=== PATIENT | female | born 1990 | race American Indian/Alaskan Native ===

== ENCOUNTER 2017-10-12 10:48 | Emergency (ER) | payer MEDICAID ==
[2017-10-12 11:11] VITALS: BP 132/83
[2017-10-12 12:21] LABS: Basophils # (Auto) 0.1 K/mm3 (0.0-0.1); Basophils % (Auto) 0.6 % (0.0-1.8); Eosinophils # (Auto) 0.3 K/mm3 (0.0-0.4); Hematocrit 42.1 % (30.3-42.9); Hemoglobin 13.5 gm/dl (10.1-14.3); Lymphocytes # (Auto) 2.5 K/mm3 (1.2-5.4); Mean Corpuscular HGB Conc 32 % (30-34); Mean Corpuscular Hemoglobin 29 pg (28-32); Mean Corpuscular Volume 89 fl (79-97); Monocytes # (Auto) 0.8 K/mm3 (0.0-0.8); Monocytes % (Auto) 8.5 % (0.0-7.3); Platelet Count 256 K/mm3 (140-440); Red Blood Count 4.75 M/mm3 (3.65-5.03); Red Cell Distribution Width 15.1 % (13.2-15.2)
--- NOTE | 2017-10-12 12:50 | Emergency Department Report ---
ED HPI - General Chief complaint: Vaginal Bleeding Stated complaint: 11 WKS PREG VAGINAL BLEEDING Time Seen by Provider: 10/12/17 12:43 Source: patient Mode of arrival: Ambulatory Limitations: No Limitations - History of Present Illness Initial comments: 27-year-old female presents with complaint of 2 days of vaginal bleeding and crampy lower abdominal pain. Denies discharge hematuria or dysuria denies any fevers or chills. Patient is awake alert and oriented 3 not in acute distress accompanied by significant other at bedside. Last menstrual period July 2017. Complaint: vaginal bleeding - Related Data Previous Rx's Medication Instructions Recorded Last Taken Type Prednisone [Prednisone 10 mg 10 mg PO .TAPER #1 tab.ds.pk 07/03/14 Unknown Rx (6-Day Pack, 21 Tabs)] traMADol [Ultram 50 MG tab] 50 mg PO Q6HR PRN #14 tablet 07/03/14 Unknown Rx Ondansetron [Zofran Odt] 4 mg PO Q8HR PRN #8 tab.rapdis 08/31/14 Unknown Rx Vit-Fe Fumar-FA [ 1 each PO QDAY #30 tablet 08/31/14 Unknown Rx Vitamin] Acetaminophen [Acetaminophen TAB] 500 mg PO Q6HR PRN #20 tablet 10/12/17 Unknown Rx Acetaminophen/Codeine [Tylenol 1 tab PO Q6H PRN #8 tab 10/12/17 Unknown Rx /Codeine # 3 tab] Nitrofurantoin Monohyd/M-Cryst 100 mg PO BID #14 capsule 10/12/17 Unknown Rx [Macrobid 100 mg Capsule] Allergies Allergy/AdvReac Type Severity Reaction Status Date / Time Penicillins Allergy Unknown Verified 07/03/14 18:14 aloe vera AdvReac Hives Verified 08/31/14 11:34 ED Review of Systems ROS: Stated complaint: 11 WKS PREG VAGINAL BLEEDING Other details as noted in HPI Constitutional: denies: chills, fever Eyes: denies: eye pain, eye discharge, vision change ENT: denies: ear pain, throat pain Respiratory: denies: cough, shortness of breath, wheezing Cardiovascular: denies: chest pain, palpitations Endocrine: no symptoms reported Gastrointestinal: denies: abdominal pain, nausea, diarrhea Genitourinary: denies: urgency, dysuria, discharge Musculoskeletal: denies: back pain, joint swelling, arthralgia Skin: denies: rash, lesions Neurological: denies: headache, weakness, paresthesias Psychiatric: denies: anxiety, depression Hematological/Lymphatic: denies: easy bleeding, easy bruising ED Past Medical Hx - Surgical History Additional Surgical History: C section - Social History Smoking Status: Never Smoker Substance Use Type: None - Medications Home Medications: Home Medications Medication Instructions Recorded Confirmed Last Taken Type Prednisone [Prednisone 10 mg 10 mg PO .TAPER #1 tab.ds.pk 07/03/14 Unknown Rx (6-Day Pack, 21 Tabs)] traMADol [Ultram 50 MG tab] 50 mg PO Q6HR PRN #14 tablet 07/03/14 Unknown Rx Ondansetron [Zofran Odt] 4 mg PO Q8HR PRN #8 tab.rapdis 08/31/14 Unknown Rx Vit-Fe Fumar-FA [ 1 each PO QDAY #30 tablet 08/31/14 Unknown Rx Vitamin] Acetaminophen [Acetaminophen TAB] 500 mg PO Q6HR PRN #20 tablet 10/12/17 Unknown Rx Acetaminophen/Codeine [Tylenol 1 tab PO Q6H PRN #8 tab 10/12/17 Unknown Rx /Codeine # 3 tab] Nitrofurantoin Monohyd/M-Cryst 100 mg PO BID #14 capsule 10/12/17 Unknown Rx [Macrobid 100 mg Capsule] ED Physical Exam - General Limitations: No Limitations General appearance: alert, in no apparent distress - Head Head exam: Present: atraumatic, normocephalic - Eye Eye exam: Present: normal appearance - ENT ENT exam: Present: mucous membranes moist - Neck Neck exam: Present: normal inspection - Respiratory Respiratory exam: Present: normal lung sounds bilaterally. Absent: respiratory distress - Cardiovascular Cardiovascular Exam: Present: regular rate, normal rhythm. Absent: systolic murmur, diastolic murmur, rubs, gallop - GI/Abdominal GI/Abdominal exam: Present: soft, normal bowel sounds - Speculum exam: Present: vaginal bleeding - Extremities Exam Extremities exam: Present: normal inspection - Back Exam Back exam: Present: normal inspection - Neurological Exam Neurological exam: Present: alert, oriented X3, CN II-XII intact, normal gait - Psychiatric Psychiatric exam: Present: normal affect, normal mood - Skin Skin exam: Present: warm, dry, intact, normal color. Absent: rash ED Course Vital Signs 10/12/17 11:03 Temperature 98.4 F Pulse Rate 103 H Blood Pressure 132/83 O2 Sat by Pulse 99 Oximetry ED Medical Decision Making - Lab Data Result diagrams: 10/12/17 12:02 - Medical Decision Making A/P: miscarriage 1- ultrasound consistent with active miscarriage 2- discussed with Dr. Mora before discharge, patient states she has a [employer] TECHNICIAN called Dr. Linh Hawley at [facility] 3- RH+ 4- I advised patient to follow up with her [employer] TECHNICIAN in 2-4 days for repeat hCG level and further workup as needed. Urinalysis is unremarkable otherwise. Critical care attestation.: If time is entered above; I have spent that time in minutes in the direct care of this critically ill patient, excluding procedure time. ED Disposition Clinical Impression: Miscarriage Disposition: DC-01 TO HOME OR SELFCARE Is pt being admited?: No Does the pt Need Aspirin: No Condition: Stable Instructions: Spontaneous Miscarriage (ED) Additional Instructions: I advised patient to follow-up with her [employer] AND G[employer] TECHNICIAN in 4-5 days for repeat blood testing hormone level and possible ultrasound Prescriptions: Acetaminophen [Acetaminophen TAB] 500 mg PO Q6HR PRN #20 tablet PRN Reason: Pain , Severe (7-10) Acetaminophen/Codeine [Tylenol /Codeine # 3 tab] 1 tab PO Q6H PRN #8 tab PRN Reason: Pain , Severe (7-10) Nitrofurantoin Monohyd/M-Cryst [Macrobid 100 mg Capsule] 100 mg PO BID #14 capsule Referrals: ROMAN RHODES MD [Staff Physician] - 3-5 Days Forms: Accompanied Note, Work/School Release Form(ED) Time of Disposition: 14:49
--- NOTE | 2017-10-12 13:32 | Emergency Department Report ---
Blank Doc - Documentation Documentation: 27-year-old female approximately 11 weeks by last menstrual period that presents with bilateral lower abdominal cramping and vaginal bleeding for the past 2 days. Patient says that her bleeding is worsening. She has seen several clots passed. She is concerned that she could be having a miscarriage. Patient has not had an ultrasound to confirm her dates. She has never had a miscarriage before. Denies urinary symptoms. Previous 4 pregnancies were complicated.
--- NOTE | 2017-10-12 13:51 | Ultrasound Report ---
TRANSABDOMINAL AND TRANSVAGINAL OBSTETRICAL ULTRASOUND: 10/12/17 10:48:00 CLINICAL: Positive test and vaginal bleeding. FINDINGS: Transabdominal and transvaginal pelvic ultrasound demonstrated a large amount of echogenic material which is presumably blood in the lower uterine cavity extending into the cervix and an empty gestational sac in the lower uterine segment. No yolk sac or embryo identified. The cervix is closed. The right ovary is normal and was only identified transabdominally. It measures 2.8 x 1.4 x 2.7cm. The left ovary measures 3.1 x 2.1 x 2.2 cm and contains a complex cyst measuring 1.3cm. No adnexal mass. No free fluid. Normal urinary bladder. IMPRESSION: An abnormal intrauterine gestational sac and its uterine blood consistent with an intrauterine AB in progress. No suspicion of ectopic .
[2017-10-12 15:19] LABS: Bilirubin,Urine NEG (Negative); Blood,Urine LG (Negative); Urobilinogen,Urine < 2.0 mg/dL (<2.0)
[2017-10-12 15:20] LABS: Color,Urine Red (Yellow); RBC,Urine > 182.0 /HPF (0.0-6.0); WBC,Urine < 1.0 /HPF (0.0-6.0)
== END 2017-10-12 15:01 | disposition home or self-care (01) ==
LOC: ED 10:48
DX: O03.9 Complete or unspecified spontaneous abortion without complication (principal); Z88.0 Allergy status to penicillin; Z3A.11 11 weeks gestation of pregnancy
CPT/HCPCS: 36415; 76801; 76817; 81001; 84702; 85025; 86850; 86900; 86901

== ENCOUNTER 2018-10-01 08:32 | Emergency (ER) | payer MEDICAID ==
[2018-10-01 08:37] VITALS: BP 119/70
--- NOTE | 2018-10-01 09:32 | Emergency Department Report ---
ED Fever HPI - General Chief Complaint: Fever Stated Complaint: FLU SYMPTOMS Time Seen by Provider: 10/01/18 09:25 Source: patient - History of Present Illness Initial Comments: Ms. Butler is a 28 yo who is approximately 6-7 weeks . She took a home test which was positive. She does not have any abdominal pain or vomiting. She does have headache diarrhea fever and chills for the past few days. Fever at home was 10 4F. She denies vaginal bleeding. She feels better now. However she wanted to make sure that she was not a risk for miscarriage. Timing/Duration: other (3 days) Fever Severity/Quality: greater than 102 F ED Review of Systems ROS: Stated complaint: FLU SYMPTOMS Other details as noted in HPI Comment: All other systems reviewed and negative Constitutional: chills, fever Gastrointestinal: nausea Neurological: headache ED Past Medical Hx - Past Medical History Previous Medical History?: No - Surgical History Past Surgical History?: Yes Additional Surgical History: C section - Social History Smoking Status: Never Smoker - Medications Home Medications: Home Medications Medication Instructions Recorded Confirmed Last Taken Type Prednisone [Prednisone 10 mg 10 mg PO .TAPER #1 tab.ds.pk 07/03/14 Unknown Rx (6-Day Pack, 21 Tabs)] traMADol [Ultram 50 MG tab] 50 mg PO Q6HR PRN #14 tablet 07/03/14 Unknown Rx Ondansetron [Zofran Odt] 4 mg PO Q8HR PRN #8 tab.rapdis 08/31/14 Unknown Rx Vit-Fe Fumar-FA [ 1 each PO QDAY #30 tablet 08/31/14 Unknown Rx Vitamin] Acetaminophen [Acetaminophen TAB] 500 mg PO Q6HR PRN #20 tablet 10/12/17 Unknown Rx Acetaminophen/Codeine [Tylenol 1 tab PO Q6H PRN #8 tab 10/12/17 Unknown Rx /Codeine # 3 tab] Nitrofurantoin Monohyd/M-Cryst 100 mg PO BID #14 capsule 10/12/17 Unknown Rx [Macrobid 100 mg Capsule] Azithromycin [Zithromax Z-SHARRI] 250 mg PO DAILY #6 tablet 10/01/18 Unknown Rx Promethazine [Phenergan] 25 mg PO Q6HR PRN #10 tab 10/01/18 Unknown Rx ED Physical Exam - General Limitations: No Limitations General appearance: alert, in no apparent distress - Head Head exam: Present: atraumatic, normocephalic - Eye Eye exam: Present: normal appearance - ENT ENT exam: Present: mucous membranes moist, other (edematous tonsils without exudate) - Neck Neck exam: Present: normal inspection - Respiratory Respiratory exam: Present: normal lung sounds bilaterally. Absent: respiratory distress, wheezes, rales, rhonchi - Cardiovascular Cardiovascular Exam: Present: regular rate, normal rhythm, normal heart sounds. Absent: systolic murmur, diastolic murmur, rubs, gallop - GI/Abdominal GI/Abdominal exam: Present: soft, normal bowel sounds. Absent: distended, tenderness, guarding, rebound - Extremities Exam Extremities exam: Present: normal inspection - Back Exam Back exam: Present: normal inspection - Neurological Exam Neurological exam: Present: alert, oriented X3 - Psychiatric Psychiatric exam: Present: normal affect, normal mood - Skin Skin exam: Present: warm, dry, intact, normal color. Absent: rash ED Course Vital Signs 10/01/18 08:34 Temperature 98.5 F Pulse Rate 89 Respiratory 18 Rate Blood Pressure 119/70 O2 Sat by Pulse 100 Oximetry ED Medical Decision Making - Medical Decision Making Ms. Butler presents with fever headache diarrhea. No indication of ectopic . No current abdominal pain or vaginal bleeding. Prescribed azithromycin for possible pharyngitis. Promethazine also prescribed for nausea Critical care attestation.: If time is entered above; I have spent that time in minutes in the direct care of this critically ill patient, excluding procedure time. ED Disposition Clinical Impression: Fever, First trimester Disposition: DC-01 TO HOME OR SELFCARE Is pt being admited?: No Does the pt Need Aspirin: No Condition: Stable Instructions: Fever in Adults (ED) Prescriptions: Promethazine [Phenergan] 25 mg PO Q6HR PRN #10 tab PRN Reason: Nausea Azithromycin [Zithromax Z-SHARRI] 250 mg PO DAILY #6 tablet
== END 2018-10-01 09:55 | disposition home or self-care (01) ==
LOC: ED 08:32
DX: O26.891 Other specified pregnancy related conditions, first trimester (principal); R51 Headache; R19.7 Diarrhea, unspecified; R50.9 Fever, unspecified; Z88.0 Allergy status to penicillin; Z91.09 Other allergy status, other than to drugs and biological substances
CPT/HCPCS: 99281